=== PATIENT | female | born 1975 | race American Indian/Alaskan Native ===

== ENCOUNTER 2017-03-11 12:38 | Day surgery (SDC) | payer BC ==
[2017-03-05 12:00] VITALS: BMI 38.1
[2017-03-11 13:43] VITALS: RESP 18
--- NOTE | 2017-03-11 13:46 | CP.SDSHP ---
Same Day Surgery H & P - History Proposed Procedure: Right ankle arthroscopy w/ debridement. Pre-Op Diagnosis: Right ankle synovitis - Previous Medical/Surgical History Previous Surgical History: Lap-band procedure -2009. Ovarian cystectomy - Allergies Allergies: Allergies No Known Allergies Allergy (Verified 12/19/16 09:12) - Current Medications Current Medications: Naprosyn - Physical Exam Vital Signs: Vital Signs 03/11/17 13:35 Pulse Rate 79 Mental Status: Alert & Oriented x3 Neuro: WNL Heart: WNL Lungs: WNL GI: WNL - {Optional Preform as Required} Integument: WNL Ortho: Other (Right ankle painful end Range of motion. pain alng lateral posterior margin and along course retro-fibulr course.) - Impression Impression: Pt was seen and examined in SDS. Pt NPO status was confirmed. All Pre-op testing and clearance was in the chart. Pt has exhausted all conservative treatment at this time and is opting for surgical intervention. Pt was explained procedure and post-operative course. All pt's questions were answered to satisfaction. No guarantees were made. Pt understands all risks, benefits and complications of procedure. Pt will follow-up with Dr. Reagan. Pt. Evaluated Today:Candidate for Anesthesia & Procedure: Yes - Date & Time Date: 03/11/17 Time: 13:46 Short Stay Discharge - Short Stay Discharge Admitting Diagnosis/Reason for Visit: M79.67 Referrals: Rick Reagan DPM [Staff Provider] - Follow-up: Follw up in office within 1 week for post-op check. Instructions: Tramadol (By mouth), RICE Therapy (GEN) Additional Instructions (Diet, Activity): --Patient in good/stable condition for discharge home. Pt to resume medications per medical reconciliation. Resume regular diet. Please keep dressing clean, dry, & intact to surgical site, use plastic bag over bandage for showering, wear post op shoe at all times when ambulating, call clinic if you see signs of infection (redness, swelling, malodor), please make an appointment to see Dr. Reagan in office within 1 week for post-op check. Progress Note/Discharge Note with Instructions: - Patient evaluated bedside in recovery s/p surgical procedure. - After surgical procedure patient in NAD - (+) Void, (+) Appetite - Capillary refill time <3s and NVSI intact. - Patient denies complaints at this time - Post operative instructions and plan of care explained to patient at length. - Pt. acknowledges understanding. - Patient stable for DC per podiatric surgery
[2017-03-11] MEDS ORDERED: Lidocaine 1% Inj (20ml) ONE (13:57)
[2017-03-11] MEDS ORDERED: SENSORCAINE 0.5% W/EPINEPHRINE 50ML MDV IJ ONE (13:59)
--- NOTE | 2017-03-11 14:24 | CP.PCM.PN ---
Subjective - Date & Time of Evaluation Date of Evaluation: 03/11/17 Time of Evaluation: 14:10 - Subjective Subjective: 41 year old female presents for surgical intervention for painful right ankle, peak pain is a 5/10 when walking. Pt has failed prior conservative management. Pt confirms she has been NPO since 9:30 yesterday evening. Pt denies recent f/c/ cp/sob/n/v. Objective - Vital Signs/Intake and Output Vital Signs (last 24 hours): Temp Pulse Resp BP Pulse Ox 98.8 F 79 18 117/69 100 03/11/17 13:42 03/11/17 13:42 03/11/17 13:42 03/11/17 13:42 03/11/17 13:42 - Constitutional Appears: Well, Non-toxic, No Acute Distress - Extremities Exam Additional comments: Right foot focused. Neuro-vascular status intact to level of digits. DP and PT pulses are fully palpable, graded 1/4. Right ankle painful end Range of motion. pain alng lateral posterior margin and along course retro-fibular course. - Neurological Exam Neurological Exam: Alert, Awake, Oriented x3 - Psychiatric Exam Psychiatric exam: Normal Affect, Normal Mood Assessment and Plan - Assessment and Plan (Free Text) Assessment: 41 year old female with right ankle synovitis Plan: Pt was seen and examined in SDS. Pt NPO status was confirmed. All Pre-op testing and clearance was in the chart. Pt has exhausted all conservative treatment at this time and is opting for surgical intervention. Pt was explained procedure and post-operative course. All pt's questions were answered to satisfaction. No guarantees were made. Pt understands all risks, benefits and complications of procedure. Pt will follow-up with Dr. Reagan.
[2017-03-11] MEDS ORDERED: Propofol 10 mg/ml Inj (20 ML) ONE ×2 (14:38→15:53)
[2017-03-11] MEDS ORDERED: Midazolam 2 MG/2 ML VIAL ONE (14:39)
[2017-03-11] MEDS ORDERED: Succinylcholine 200 mg/10 ml Inj IV ONE (14:39)
[2017-03-11] MEDS ORDERED: Lidocaine Hydrochloride 5 ML INJ ONE (14:40)
[2017-03-11] MEDS ORDERED: Sevoflurane - Inhalation Anesthetic Liq (250 ml) ONE (15:01)
[2017-03-11] MEDS ORDERED: Dexamethasone 4 mg/1 ml ONE ×2 (15:08→16:05)
[2017-03-11] MEDS ORDERED: Bupivacaine-Epi 0.5%-1:200,000 PF Inj IJ ONE (15:21)
[2017-03-11] MEDS ORDERED: Lactated Ringer's 1,000 ML IV SCH (15:26)
[2017-03-11] MEDS ORDERED: Bupivacaine 0.5% 50 ML IJ ONE ×2 (15:44→16:13)
[2017-03-11] MEDS ORDERED: Lactated Ringer's 1,000 ML IV ONE (15:55)
[2017-03-11] MEDS ORDERED: MethylPREDNISolone Depo 40 mg/ml Inj ONE (16:04)
[2017-03-11] MEDS ORDERED: Oxycodone/Acetaminophen 5/325 mg Tab PO PRN ×2 (16:23)
--- NOTE | 2017-03-11 16:27 | PCM.SURG1 ---
Surgeon's Initial Post Op Note - Surgeon's Notes Surgeon: Dr. Reagan Control Engineer: Marquez, PGY-2 Type of Anesthesia: General LMA, Local Anesthesia Administered By: Dr. 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 Hemostasis: PTT at 350mmHg. Materials: 2-0 vicryl; 4-0 nylon; xeroform; 4x4 gauze, carla, kerlix, ESTIVEN bandage. Injectables : 15cc 0.5% Marcaine with epinephrine intra-op; 20cc 0.5% Marcaine plain post-op ; 2cc dexamethasone phosphate post-op. Condition: stable Post-Operative Diagnosis: Same as above Operation Performed: Right ankle- arthroscopy with extensive debridement of synovial tissue; primary ATFL repair Specimen/Specimens Removed: None Estimated Blood Loss: EBL {In ML}: 1 Blood Products Given: N/A Drains Used: No Drains Post-Op Condition: Good Date of Surgery/Procedure: 03/11/17 Time of Surgery/Procedure: 15:00
[2017-03-11 18:33] VITALS: BP 116/68; PULSE 87; TEMP 98; O2SAT 99
--- NOTE | 2017-03-14 20:00 | OP ---
PROCEDURE DATE: 03/11/2017 SURGEON: Rick Reagan DPM. HOUSING COUNSELOR: Justin Zayas DPM, PGY-2. LEVI MAKER: Dr. Carmen. ANESTHESIA: General. PREOPERATIVE DIAGNOSES: 1. Right ankle painful and chronic synovitis. 2. Right lateral ankle instability secondary to a partial anterior talofibular ligament tear. POSTOPERATIVE DIAGNOSES: 1. Right ankle painful and chronic synovitis. 2. Right lateral ankle instability secondary to a partial anterior talofibular ligament tear. NAME OF PROCEDURE: 1. Right ankle arthroscopy with extensive debridement of synovial tissue. 2. Right ankle primary repair of the anterior talofibular ligament. INDICATIONS: The patient is a 41-year-old female with the above diagnosis. The patient has exhausted conservative treatment at this time and now requests surgical intervention. The patient signed the consent after careful explanation of risks, benefits, complications, and alternatives for surgical procedure. No guarantees were given nor implied. Ancef 2 g IV was given to the patient prior to the procedure. The patient's n.p.o. status was confirmed prior to taking the patient to the OR. PREPARATION: The patient was brought to the operating room and placed on the operating room table in supine position. Time-out was performed for identification of the correct patient and the correct procedure. After induction of general anesthesia, a well-padded pneumatic thigh tourniquet was applied to the patient's right side. The right lower extremity was then prepped and draped in usual sterile manner. Esmarch was utilized to exsanguinate the patient's right lower extremity. Pneumatic thigh tourniquet was then inflated to 350 mmHg and the procedure began. PROCEDURE #1: Right ankle arthroscopy with extensive debridement of synovial tissue. Attention was directed to the dorsal aspect of the patient's ankle where the ankle was infiltrated with approximately 15 mL of 0.5% Marcaine with epinephrine in order to inflate the ankle joint capsule. Next, using a surgical marking pen, anatomical landmarks were marked such as the tibialis anterior tendon and the medial and lateral gutters were identified. Next, using a #15 blade, a medial portal was created. Using a hemostat down to the level of the ankle joint, the ankle joint was then entered. Next, the 2.7 scope was inserted into the medial portal. There was an abundance of hypertrophic synovium as well as fibrous bands within the lateral gutter of the ankle joint. Next, a lateral portal was created by using a 15 blade and a hemostat was then inserted down to the level of the ankle joint. Next, a trocar was placed into the lateral portal and it was triangulated along with a 2.7 scope. Next, a 3.5 aggressive shaver was inserted into the lateral ankle portal. At this time, extensive debridement of the hypertrophic synovium and fibrous bands was performed. Next, the scope and the shaver were removed from their respective portals and were re-entered into the opposite portal and the medial gutter was now visualized. Extensive debridement of the hypertrophic synovium and fibrous bands were now performed within the medial gutter. At this time, the ankle joint was then copiously irrigated and the 2.7 scope and the shaver were removed from each portal. The portal sites were then flushed with a copious amount of sterile normal saline. The skin at the medial and lateral portal was then reapproximated and coapted using 4-0 nylon. PROCEDURE #2: Right ankle primary repair of the anterior talofibular ligament. Attention was then directed to the lateral aspect of the ankle joint in the region of the anterior talofibular ligament. An approximately 4 cm curvilinear incision was created overlying the region of the ATFL at the level of the lateral gutter of the ankle joint. The incision was carried through the subcutaneous tissues with care being taken to identify and retract all vital neurovascular structures. All bleeders were cauterized and ligated as necessary. Using a #15 blade, the capsular structures were incised in a vertical fashion overlying the roof of sinus tarsi. Once the ATFL was visualized, 2-0 Vicryl was used to reapproximate the tendon for greater stabilization. The surgical wound was then irrigated with a copious amount of sterile normal saline. The subcutaneous tissues were then reapproximated and coapted using 4-0 Vicryl. The skin was then reapproximated and coapted using 4- 0 nylon in a combination of interrupted horizontal mattress and simple suture technique. The surgical site was now infiltrated with 20 mL of 0.5% Marcaine plain and 2 mL of dexamethasone phosphate. The incision sites were then dressed with Xeroform, 4 x 4 gauze, ABD pads, Sarah, Kerlix and an Zach bandage was then applied to the right lower extremity. The attending, Dr. Reagan, was present throughout the entire case. POSTOPERATIVE CONDITION: The patient tolerated the anesthesia and procedure well and was escorted to the recovery room with vital signs stable and neurovascular status intact to the right lower extremity. The patient was instructed to weightbear as tolerated to the right foot with a surgical shoe. The patient is to follow up with Dr. Reagan at his office on an outpatient basis. Justin Zayas DPM Rick Reagan DPM cc: [id number] TT: 03/14/2017 19:59:33 zoila [email or web address]
== END 2017-03-11 18:45 | disposition home or self-care (01) ==
LOC: H.OPSURG 12:38
PROVIDERS: ATTEND Podiatrist Foot & Ankle Surgery
DX: M65.871 Other synovitis and tenosynovitis, right ankle and foot (principal); M25.372 Other instability, left ankle; S93.491A Sprain of other ligament of right ankle, initial encounter; X58.XXXA Exposure to other specified factors, initial encounter
CPT/HCPCS: 29895; 97161; G8978; G8979; G8980; J0690; J1030; J1100; J2250; J2405; J2704; J3010; J7030; J7120